=== PATIENT | female | born 1975 | race Two or more races ===

== ENCOUNTER 2024-06-30 17:57 | Emergency (ER) | payer SELFPAY ==
[2024-06-30 17:58] VITALS: BMI 23.3
[2024-06-30 18:18] VITALS: BP 122/77; PULSE 100; RESP 18; TEMP 37.7; O2SAT 99
--- NOTE | 2024-06-30 18:29 | PD.EDURI ---
Upper Respiratory Inf. RME/HPI General Chief Complaint: Flu Like Symptoms Stated Complaint: FLU LIKE SYMPTOMS Time Seen by Provider: 06/30/24 18:27 Arrival date/time: 06/30/24 17:57 RME / HPI RME / HPI Narrative: 49-year-old female patient was brought in by family for evaluation regarding fever. Patient is having fever for the last few days, with sore throat, headache, body aches, joint pains, severity moderate. Patient was seen by PCP yesterday and was started on Keflex. Patient denies any vomiting denies any cough denies any other complaints. Patient also denies any difficulty swallowing. Related Data Home Medications ?Medication ?Instructions ?Recorded ?Confirmed metformin 500 mg tablet 500 mg PO QDAY #0 tabs 09/27/15 (Glucophage) Previous Rx's ?Medication ?Instructions ?Recorded ibuprofen 800 mg tablet 800 mg PO TID PRN pain #30 tabs 06/30/24 Allergies Allergy/AdvReac Type Severity Reaction Status Date / Time Penicillins Allergy Unknown Verified 06/30/24 18:02 Review of Systems Review of Systems Narrative Review of Systems: Review of system reviewed and within normal limits except mentioned in HPI ED Exam Narrative Physical exam: VITAL SIGNS: Reviewed. GENERAL APPEARANCE: Alert and interactive, follows commands, no acute distress, HEAD AND FACE: Non-traumatic. ENT: PERRL, pink conjunctivitis, eyelid no trauma, Mucous membrane moist. NECK: Supple, nontender, no nuchal rigidity. CHEST: No tenderness, no crepitus, no paradoxical movement, no retractions. LUNGS: Clear, well ventilated, symmetric, no rales, no wheezing, no ronchi, no stridor, good breath sounds bilaterally. HEART: Regular rate, regular rhythm, no murmur, no gallops. ABDOMEN: Soft, positive bowel sounds, nondistended, no guarding, nontender, no rebound, no masses, RECTAL: Deferred. GENITAL: Deferred. NEUROLOGICAL: Gross motor function intact sensory function intact, Appropriate for age. MUSCULOSKELETAL: low back nontender, full range of motion. EXTREMITIES: Nontender, full range of motion. SKIN: Color pink, dry, no rash, no lacerations, no abrasions, no contusions. LYMPHATICS: Deferred. Course Quality Measures none Orders Category Date Time Status Bedside Influenza A&B Antigen Test NOW Care 06/30/24 18:21 Completed Acetaminophen Tab [Tylenol ES Tab] Med 06/30/24 18:28 Discontinued 1,000 mg PO X1 ONE Ibuprofen Tab [Motrin Tab] Med 06/30/24 18:28 Discontinued 800 mg PO X1 ONE Vital Signs Vital signs: Vital Signs Temperature 100 F 06/30/24 18:18 Pulse Rate 100 06/30/24 18:18 Respiratory Rate 18 06/30/24 18:18 Blood Pressure 122/77 06/30/24 18:18 Pulse Oximetry (%) 99 06/30/24 18:18 Oxygen Delivery Method Room Air 06/30/24 18:18 Upper Respiratory Infection MDM Narrative MDM Narrative:: 49-year-old female patient was brought in by family for evaluation regarding fever. Patient is having fever for the last few days, with sore throat, headache, body aches, joint pains, severity moderate. Patient was seen by PCP yesterday and was started on Keflex. Patient denies any vomiting denies any cough denies any other complaints. Patient also denies any difficulty swallowing. Patient tested negative for influenza and COVID-19. Results discussed with the patient. Patient was given Tylenol Motrin with significant improvement of symptoms. Patient appears nontoxic and hemodynamically stable. Patient discharged home and instructed to follow-up with primary care provider in 24 to 48 hours. Instructed to return to the emergency department immediately if worsening of symptoms Patient data External records reviewed:: None Clinical information provided by:: patient Social determinants that could affect healthcare access:: none Patient has the following chronic illnesses:: Diabetes mellitus How is presenting disease/condition affected by chronic disease/condition?: uneffected by Evaluation data The following diagnostics were reviewed and interpreted by me:: lab results Lab and/or radiology exams considered but not ordered:: None Interpretation Summary: Tested negative for influenza and COVID-19 Medications / Prescriptions Medications or Prescriptions considered but not ordered:: None Medication administrations:: Medication Administration History Discontinued Medications Acetaminophen (Acetaminophen 500 Mg Tablet) 1,000 mg PO X1 ONE Stop: 06/30/24 18:29 Last Admin: 06/30/24 19:17 Dose: 1,000 mg Documented By: RUPALI Ibuprofen (Ibuprofen Tab 400 Mg Tablet) 800 mg PO X1 ONE Stop: 06/30/24 18:29 Last Admin: 06/30/24 19:16 Dose: 800 mg Documented By: RUPALI Tylenol and ibuprofen Consultations Consultation(s) initiated? (list below): No Diagnosis Upper Respiratory Differential Diagnosis: upper respiratory infection, viral infection and influenza Most likely diagnosis given after review of the tests above:: Upper respiratory infection Admission Indicated Admission indicated?: not indicated Admission Request Was there a request for admission?: No Disposition Plan Disposition Plan: Discharge Discharge Attestation Discharge Attestation: The patient and all family members were given an opportunity to ask questions and understood the discharge instructions. Discharge instructions specifically effects, indications for sooner follow up or return to the emergency department, and the expected course of current diagnosis. Patient condition: Stable Discharge Plan Plan Patient Disposition: HOME (Self Care) Disposition Comment: Stable Prescriptions/Referrals Prescriptions/Med Rec: New ibuprofen 800 mg tablet 800 mg PO TID PRN (Reason: pain) Qty: 30 0RF No Action metformin [Glucophage] 500 MG tablet 500 mg PO QDAY Qty: 0 Referrals: No Primary/Family,Physician [Primary Care Provider] - In 1 week Problem List Clinical Impression: Upper respiratory infection Patient/Caregiver Discharge Instructions Discharge Activity: activity as tolerated Education Materials: Preventing Common Respiratory ... Additional Instructions: Thank you for the opportunity for serving you today. You are stable for discharged . You are advised to: Follow-up with your PCP in 1 to 2 days Return to ED for worsening of symptoms Increase oral fluids Take medication as prescribed by your PCP Take your ibuprofen/Motrin alternating with Tylenol as instructed Print Language: Macedonian Stand Alone Forms: Denia Award Info., Patient Portal Info Letter SARAH/ANIKA Supervising Physician SARAH/ANIKA Supervising Physician: MD King
[2024-06-30] MEDS: IBUPROFEN TAB 400 MG TABLET 800 MG PO (19:16)
[2024-06-30] MEDS: ACETAMINOPHEN 500 MG TABLET 1000 MG PO (19:17)
== END 2024-06-30 19:32 | disposition home or self-care (01) ==
PROVIDERS: Emergency Provider Emergency Medicine
DX: J06.9 Acute upper respiratory infection, unspecified (principal); E11.9 Type 2 diabetes mellitus without complications; Z88.0 Allergy status to penicillin
CPT/HCPCS: 87400; 87811; 99283; A9270

== ENCOUNTER 2025-03-20 16:00 | Outpatient (RCR) | payer MEDICAID, SELFPAY ==
--- NOTE | 2025-03-05 09:01 | PTNOTE_ITS ---
PT OP Initial Eval Patient Information Outpatient Physical Therapy Treatment Date: 03/05/25 Visit Reasons: Left hip pain Medical Diagnosis: M16.12 Treatment Dx #1: L LE pain Treatment Dx #2: Decreased L hip ROM Start of Care: 03/05/25 Date of Onset: 10/24/24 Smoking Status Smoking Status: Never smoker Initial Assessment Subjective: Pt is 49 yr old kenyan speaking female who reports L hip pain and LE stiffness behind the knee and into the calf mm when she walks. She had L MARYJO in October and this is the first time coming to therapy after sx. She reports difficulty puttin g on socks. She is ambulating 30-40 minutes. PMH: HTN, DM, L MARYJO Pt goal: to walk without L LE pain Objective: L hip AROM: ? Flexion: 90 deg ? Abduction: 25 deg ? PROM: 90 deg flexion ER: 40 deg ? SLR: 55 deg with slight extensor lag ? Strength: L quads 4/5, hamstrings 4/5 ? Assessment: Pt presents with limited SLR, abduction and ER ROM consistent with hip and hamstring tightness. Pt requires skilled therapy to meet goals and has good rehab potential. 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 Ind with HEP 2. Improved abduction ROM to 35 deg 3. Pt will ambulate with symmetrical pattern without antalgia or posterior knee stiffness x40 mins Treatment Plan ? 1. Manual therapy ? 2. Therex ? 3. Modalities as indicated, moist heat, ice, estim Frequency and Duration: 2x a week for 16 visits plus the evaluation Certification Dates: 03/05/25 to 06/03/25 Procedure Charges OP PT Eval Mod Complex 30 minutes: Yes
--- NOTE | 2025-03-12 17:55 | PT.ODAYNRPT ---
PT Outpatient Daily Note OP Daily Note Outpatient Physical Therapy Treatment Date: 03/12/25 Visit Reasons: Left hip pain Subjective: Same as time of evaluation Objective: See F/S for therex Assessment: Some stiffness into abduction limits lateral stepping. Able to do partial body weight squats on total gym Plan: Continue per POC Length of Time (minutes) of Treatment: 30 Minutes Procedure Charges Therapeutic Exercise 30 minutes: Yes
--- NOTE | 2025-03-20 17:28 | PT.ODAYNRPT ---
PT Outpatient Daily Note OP Daily Note Outpatient Physical Therapy Treatment Date: 03/20/25 Visit Reasons: Left hip pain Subjective: Pt has had difficulty getting rides to therapy. The L hip is stiff Objective: See F/S for therex Assessment: Some stiffness into abduction limits lateral stepping. Plan: Continue per POC Length of Time (minutes) of Treatment: 30 Minutes Procedure Charges Therapeutic Exercise 30 minutes: Yes
== END 2025-03-22 23:59 | disposition home or self-care (01) ==
LOC: CPTX 16:00
PROVIDERS: PCP Physician Assistant; Referring Provider Physician Assistant; Visit Provider Physician Assistant
DX: Z47.1 Aftercare following joint replacement surgery (principal); Z96.642 Presence of left artificial hip joint; M25.552 Pain in left hip; M25.662 Stiffness of left knee, not elsewhere classified; I10 Essential (primary) hypertension; E11.9 Type 2 diabetes mellitus without complications
CPT/HCPCS: 97110; 97162

== ENCOUNTER 2025-04-16 15:30 | Outpatient (RCR) | payer MEDICAID, SELFPAY ==
--- NOTE | 2025-03-26 17:55 | PT.ODAYNRPT ---
PT Outpatient Daily Note OP Daily Note Outpatient Physical Therapy Treatment Date: 03/26/25 Visit Reasons: left hip pain Subjective: Pt has had difficulty getting rides to therapy. The L hip is stiff Objective: See F/S for therex Assessment: Some stiffness into abduction limits lateral stepping. Plan: Continue per POC Length of Time (minutes) of Treatment: 30 Minutes Procedure Charges Therapeutic Exercise 30 minutes: Yes
--- NOTE | 2025-04-09 16:10 | PT.ODAYNRPT ---
PT Outpatient Daily Note OP Daily Note Outpatient Physical Therapy Treatment Date: 04/09/25 Visit Reasons: left hip pain Subjective: The L hip feels less stiff since starting therapy Objective: See F/S for therex MHP: L hip x7' Assessment: Some stiffness into abduction limits ROM Plan: Continue per POC Length of Time (minutes) of Treatment: 30 Minutes Procedure Charges Therapeutic Exercise 30 minutes: Yes
--- NOTE | 2025-04-16 18:08 | PT.ODAYNRPT ---
PT Outpatient Daily Note OP Daily Note Outpatient Physical Therapy Treatment Date: 04/16/25 Visit Reasons: left hip pain Subjective: Pt c/o tightness and points to the back of the L thigh and calf Objective: See F/S for therex Assessment: Some stiffness into abduction limits ROM Plan: Continue per POC Length of Time (minutes) of Treatment: 30 Minutes Procedure Charges Therapeutic Exercise 30 minutes: Yes
== END 2025-04-21 23:59 | disposition home or self-care (01) ==
LOC: CPTX 15:30
PROVIDERS: PCP Physician Assistant; Referring Provider Physician Assistant; Visit Provider Physician Assistant
DX: Z47.1 Aftercare following joint replacement surgery (principal); Z96.642 Presence of left artificial hip joint; M25.552 Pain in left hip; M25.662 Stiffness of left knee, not elsewhere classified; I10 Essential (primary) hypertension; E11.9 Type 2 diabetes mellitus without complications
CPT/HCPCS: 97110